=== PATIENT | female | born 1985 | race African-American/Black ===

== ENCOUNTER 2017-03-16 20:42 | Emergency (ER) | payer OTHER ==
[~2017-03-16] VITALS: Ht 162.6 cm; Wt 57.6 kg
--- NOTE | 2017-03-16 21:33 | ED GI/GU/ABDOMINAL COMPLAINT ---
History of Present Illness General Chief Complaint: Female Urogenital Problems Stated Complaint: STD? Source: patient Exam Limitations: no limitations Vital Signs & Intake/Output Vital Signs & Intake/Output Vital Signs Date Time Temp Pulse Resp B/P B/P Pulse O2 O2 Flow FiO2 Mean Ox Delivery Rate 03/160 98.0 75 18 120/78 97 Room Air Room Air 03/16 2054 97.4 76 18 122/81 98 Room Air Allergies Coded Allergies: No Known Allergies (03/16/17) Triage Note: PT REPORTS VAGINAL DISCHARGE. HER BOYFRIEND HAD SEXUAL INTERCOURSE WITH A WOMAN WHO RECENTLY ADMITTED TO HAVE BEEN TREATED FOR CHLAMYDIA. Triage Nurses Notes Reviewed? yes ? n Is pt currently ? No HPI: Patient is a 31-year-old female presents complaining of vaginal discharge. Patient's boyfriend reportedly had unprotected sex with another female that was positive for gonorrhea and chlamydia. Discharge 1 week. Pain is 0 out of 10. Patient denies fevers, chills, nausea, vomiting. Past History Travel History Traveled to [place] past 21 day No Medical History Any Pertinent Medical History? none Surgical History Surgical History: non-contributory Psychosocial History What is your primary language Montenegrin Tobacco Use: Never used Family History Hx Contributory? No Review of Systems Review of Systems Constitutional: Denies: chills, fever. GI: Denies: abdominal pain, nausea, vomiting. Genitourinary: Reports: see HPI. Musculoskeletal: Reports: no symptoms. Skin: Reports: no symptoms. Neurological/Psychological: Reports: no symptoms. Hematologic/Endocrine: Reports: no symptoms. Immunologic/Allergic: Reports: no symptoms. Physical Exam Physical Exam General Appearance: well developed/nourished, alert, awake Head: atraumatic, normal appearance Eyes: Bilateral: normal appearance. Ears, Nose, Throat, Mouth: hearing grossly normal, moist mucous membrane Neck: normal inspection, supple, full range of motion Respiratory: no respiratory distress Gastrointestinal: nondistended Pelvic: with Peace MST present in room: minimal white discharge from cervical os. no visible lesions Back: normal range of motion Extremities: normal range of motion Neurologic/Psych: no motor/sensory deficits, awake, alert, oriented x 3, normal gait, normal mood/affect Skin: intact, normal color, warm/dry Core Measures ACS in differential dx? No Severe Sepsis Present: No Septic Shock Present: No Progress Differential Diagnosis: PID/cervicitis, UTI/pyelo Plan of Care: Orders Procedure Date/time Status CHLAMYDIA-GC DNA PROBE 03/16 2057 Active Microbiology 03/16 2210 GENITAL: GC DNA Probe - RECD 03/16 2210 GENITAL: Chlamydia DNA Probe (TEJINDER) - RECD Initial ED EKG: none Departure Departure Disposition: HOME OR SELF CARE Condition: Stable Clinical Impression Primary Impression: Sexually transmitted disease Referrals: PATIENT HAS NO PRIMARY CARE DR (PCP/Family) Additional Instructions: It will take 2-3 days to receive the results of your test. You will be called if they are positive. Do not have sexual intercourse for 1 week to allow for the antibiotics to work. Return to the ER if fevers, abdominal pain, or worsening of symptoms. Departure Forms: Customer Survey General Discharge Information
[2017-03-16 22:30] VITALS: BP 120/78
== END 2017-03-16 22:31 ==
LOC: ERH 20:42
DX: A64 Unspecified sexually transmitted disease (principal)
CPT/HCPCS: 87491; 87591; 96372; J0456; J0696